=== PATIENT | female | born 1985 | race Hispanic/Latino ===

== ENCOUNTER 2018-05-23 18:09 | Emergency (ER) | payer OTHER ==
[2018-05-23 18:23] VITALS: BP 149/86; PULSE 78; RESP 18; TEMP 98.2; O2SAT 99
--- NOTE | 2018-05-23 19:09 | ED PDOC ---
HPI: Female Pain Chief Complaint (Provider): LLQ abdominal pain History Per: Patient History/Exam Limitations: no limitations Onset/Duration Of Symptoms: Days Current Symptoms Are (Timing): Still Present Pain Scale Rating Of: 8 Quality Of Discomfort: Sharp Associated Symptoms: Nausea. denies: Fever, Chills, Vomiting, Diarrhea, Back Pain, Chest Pain, Constipation, Urinary Symptoms Additional Complaint(s): 33 y/o F with PMHx of ovarian cyst presents to ED complaining of LLQ abdominal pain for 2 days. States pain started on Saturday, intermittent, sharp like pain , no radiates, now intensity 07/04, taking motrin 2 tablets, but has not been helping. Also reports nausea x 2 days, without any emesis episode. LMP: . Denies fevers, chills, urinary symptoms, abnormal vaginal discharge, diarrheas or constipation. Has been moving her bowels daily and regular, last BM this morning and normal. Denies blood in the urine. Patient is sexual active with one male partner for one year, and uses condoms for control. <Beatriz Lara - Last Filed: 05/23/18 21:40> <Tali Cruz - Last Filed: 05/26/18 14:36> Time Seen by Provider: 05/23/18 18:55 Chief Complaint (Nursing): Female Genitourinary Supervising Attending Note - Supervising Attending Note The Documented history was done by the: Physician Extension Worker The documented physical exam was done by the: Physician Extension Worker, Attending Physician - Attestation: I have personally seen and examined this patient.: Yes I have fully participated in the care of the patient.: Yes I have reviewed all pertinent clinical information, including history, physical exam and plan: Yes <Tali Cruz - Last Filed: 05/26/18 14:36> Past Medical History Vital Signs: Last Vital Signs Temp 98.2 F 05/23/18 18:17 Pulse 78 05/23/18 18:17 Resp 18 05/23/18 18:17 BP 149/86 05/23/18 18:17 Pulse Ox 99 05/23/18 18:17 - Medical History Other PMH: Ovarian Cyst - Surgical History Surgical History: No Surg Hx - Family History Family History: States: Unknown Family Hx - Social History Current smoker - smoking cessation education provided: No Ex-Smoker (has not smoked in the last 12 months): No Alcohol: None Drugs: Denies <Beatriz Lara - Last Filed: 05/23/18 21:40> Vital Signs: Last Vital Signs Temp 98.2 F 05/23/18 18:17 Pulse 78 05/23/18 18:17 Resp 18 05/23/18 18:17 BP 149/86 05/23/18 18:17 Pulse Ox 99 05/23/18 21:45 <Tali Cruz - Last Filed: 05/26/18 14:36> - Home Medications Home Medications: Ambulatory Orders Medication Instructions Recorded Ketorolac Tromethamine [Toradol] 10 mg PO Q8 PRN #30 tab 05/23/18 - Allergies Allergies/Adverse Reactions: Allergies Allergy/AdvReac Type Severity Reaction Status Date / Time No Known Allergies Allergy Verified 05/23/18 18:17 Review of Systems ROS Statement: Except As Marked, All Systems Reviewed And Found Negative (as per HPI) <Beatriz Lara - Last Filed: 05/23/18 21:40> Physical Exam - Reviewed Nursing Documentation Reviewed: Yes Vital Signs Reviewed: Yes - Physical Exam Appears: Positive for: Non-toxic, No Acute Distress Skin: Positive for: Normal Color, Warm, Dry. Negative for: Pallor, Rash, Mottled, Cyanosis Cardiovascular/Chest: Positive for: Regular Rate, Rhythm. Negative for: Chest Non Tender, Edema, Murmur, Bradycardia, Tachycardia Respiratory: Positive for: Normal Breath Sounds. Negative for: Decreased Breath Sounds, Accessory Muscle Use, Crackles, Rales, Rhonchi, Stridor, Wheezing , Respiratory Distress Gastrointestinal/Abdominal: Positive for: Bowel Sounds (present), Soft, Tenderness (LLQ). Negative for: Mass, Distended, Guarding, Rebound Back: Positive for: Normal Inspection. Negative for: L CVA Tenderness, R CVA Tenderness Neurologic/Psych: Positive for: Alert, Oriented <Beatriz Lara - Last Filed: 05/23/18 21:40> - ECG O2 Sat by Pulse Oximetry: 99 <Beatriz Lara - Last Filed: 05/23/18 21:40> Medical Decision Making Medical Decision Making: Left Lower quadrant pain Ovarian cyst vs Ovarian cyst rupture vs PID -afebrile - test -urine dip -GC/Chl -TVUS -zofran 4 mg ODT once -Toradol 15 mg IM once case discussed with Dr. Cruz Re-evaluation Re-evaluation patient is feeling better, her pain improved significantly after toradol 15 mg IM once, and denies any nausea. Urine test negative Urine dip negative TVUS: FINDINGS: Uterus: Uterus measures approximate 7 x 3 x 4 cm. endometrium measures approximately 8 mm in width. Right ovary: Right ovary measures approximately 3.3 x 1.2 x 2.3 cm.There are multiple small follicles. There is intraovarian blood flow. Left ovary: Left ovary measures approximately 3.9 x 1 x 3.5 cm.There are multiple small follicles. There is intraovarian blood flow. There is a corpus luteum the left ovary. Free fluid: There is no free fluid. IMPRESSION: Normal pelvic ultrasound Patient stable to be discharged home with recommended f/u with PMD in 2-3 days. Case reviewed and discussed with Dr. Cruz <Beatriz Lara - Last Filed: 05/23/18 21:40> Disposition - Patient ED Disposition Is Patient to be Admitted: No Discussed With : Tali Cruz - Disposition Disposition: Routine/Home Disposition Time: 21:30 <Beatriz Lara - Last Filed: 05/23/18 21:40> <Tali Cruz - Last Filed: 05/26/18 14:36> - Clinical Impression Clinical Impression: Pelvic pain - Disposition Referrals: [facility] [Outside] Condition: IMPROVED Additional Instructions: Please follow up with PMD in 2-3 days. Prescriptions: Ketorolac Tromethamine [Toradol] 10 mg PO Q8 PRN #30 tab PRN Reason: PAIN Instructions: Acute Pelvic Pain Forms: [employer] ([place]an)
--- NOTE | 2018-05-23 21:20 | US ---
EXAM: US Pelvis, Transvaginal US Duplex Arterial/Venous of the Pelvis, Complete EXAM DATE/TIME: 05/23/2018 7:25 PM CLINICAL HISTORY: 33 years old, female; Pain; Pelvic pain; Additional info: Pelvic pain h/o ovarian cyst; LMP 05/05/18 TECHNIQUE: Real-time transvaginal pelvic ultrasound (complete) with image documentation. Transvaginal imaging was used for better evaluation of the endometrium and adnexa. Real-time duplex ultrasound scan of the arterial and venous flow of the pelvis with color Doppler flow and spectral waveform analysis. COMPARISON: There are no prior studies for comparison. FINDINGS: Uterus: Uterus measures approximate 7 x 3 x 4 cm. endometrium measures approximately 8 mm in width. Right ovary: Right ovary measures approximately 3.3 x 1.2 x 2.3 cm.There are multiple small follicles. There is intraovarian blood flow. Left ovary: Left ovary measures approximately 3.9 x 1 x 3.5 cm.There are multiple small follicles. There is intraovarian blood flow. There is a corpus luteum the left ovary. Free fluid: There is no free fluid. IMPRESSION: Normal pelvic ultrasound
== END 2018-05-23 22:03 | disposition home or self-care (01) ==
LOC: H.ER 18:09
DX: N83.202 Unspecified ovarian cyst, left side (principal)
CPT/HCPCS: 76830; 81025; 87491; 87591; 96372; 99283; J1885